=== PATIENT | male | born 1965 | race Caucasian/White ===

== ENCOUNTER 2020-10-20 19:27 | Emergency (ER) | payer MEDICAID ==
[~2020-10-20] VITALS: Ht 170.2 cm; Wt 92.8 kg
[2020-10-20 21:27] VITALS: BP 132/67
== END 2020-10-20 21:27 | disposition home or self-care (01) ==
LOC: ED 19:27
DX: L03.114 Cellulitis of left upper limb (principal); W55.01XA Bitten by cat, initial encounter; Y93.89 Activity, other specified; Y92.89 Other specified places as the place of occurrence of the external cause; Y99.8 Other external cause status